=== PATIENT | female | born 1970 | race Caucasian/White ===

== ENCOUNTER 2019-11-11 19:11 | Emergency (ER) | payer MEDICARE ==
[2019-11-11 19:20] VITALS: BP 122/77
[2019-11-11] MEDS ORDERED: ACETAMINOPHEN 325 MG TABLET PO STA (19:44)
[2019-11-11] MEDS ORDERED: CYCLOBENZAPRINE 10 MG TABLET PO STA (19:44)
--- NOTE | 2019-11-11 19:47 | ED Physician Documentation ---
History of Present Illness - Stated complaint Stated Complaint: RT ARM PX/UNABLE TO LIFT - Chief complaint Chief Complaint: Ext Problem - Additonal information Additional information: This is a 49-year-old female with a history of breast cancer status post resection, radiation, and currently on terminal therapy, COPD on oxygen at home, sleep apnea on BiPAP, who presents with right shoulder pain. Patient states that she did not have any twisting or trauma or strain event of her right shoulder but 4 days ago she began having some pain in her right shoulder joint and this is progressed since then. She feels like her ability to flex the arm forward and abducted has been more and more limited. She has normal strength in her elbow and her hand. She does not feel that the shoulder is actually weak but rather that it hurts and that she is hitting a wall when she tries to move it. She denies any fever, redness or swelling of the joint. She is never had this before. She did not have any past surgeries to the shoulder, she did have radiation of her right breast in the region of her shoulder in the past. She took some Naprosyn earlier today and it helped with her pain somewhat but she continued to have limited range of motion. No other weakness, numbness no speech changes, no vision changes. Review of Systems Constitutional: denies: Fever Nose: denies: Rhinorrhea / runny nose Cardiac: denies: Chest pain / pressure Respiratory: denies: Dyspnea GI: denies: Abdominal Pain Skin: denies: Rash Musculoskeletal: reports: Joint pain PD PAST MEDICAL HISTORY - Past Medical History Past Medical History: Yes Respiratory: COPD - Present Medications Home Medications: Ambulatory Orders Medication Instructions Recorded Confirmed Cyclobenzaprine [Flexeril] 10 mg PO TID PRN #14 tablet 11/11/19 - Allergies Allergies/Adverse Reactions: Allergies Allergy/AdvReac Type Severity Reaction Status Date / Time codeine AdvReac Nausea Verified 11/11/19 19:20 - Social History Does the pt smoke?: No Smoking Status: Former smoker Does the pt drink ETOH?: No Does the pt have substance abuse?: No - POLST Patient has POLST: No PD ED PE NORMAL - Vitals Vital signs reviewed: Yes - General General: Alert and oriented X 3, No acute distress - HEENT HEENT: PERRL - Neck Neck: Supple, no meningeal sign - Cardiac Cardiac: RRR - Respiratory Respiratory: No respiratory distress, Clear bilaterally - Abdomen Abdomen: Soft, Other (rotunfd) - Derm Derm: Warm and dry - Extremities Extremities: Other (Upper extremities are symmetric in appearance. There is no erythema or warmth of either shoulder. The right shoulder there is some mild tenderness to palpation especially anteriorly in the deltoid. Sensation is intact over the entire arm including the distribution of the axillary nerve, median, radial, and ulnar nerves. She has 5 out of 5 strength with hand squeeze finger abduction wrist extension elbow flexion elbow extension. She actually has excellent strength with forward flexion but this causes pain. She is unable to abduct her arm past around 45 degrees due to pain, passive range of motion increases to about 90 degrees but she still continues to have discomfort. There is resistance past this. 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 Sensation intact light touch over the lower legs, patient endorses some chronic neuropathy over her feet.) - Psych Psych: Normal mood, Normal affect Results - Vitals Vitals: Vital Signs - 24 hr 11/11/19 19:15 Temperature 36 C L Heart Rate 97 Respiratory 24 Rate Blood Pressure 122/77 O2 Saturation 89 L Oxygen O2 Source Nasal cannula - Labs Labs: Laboratory Tests 11/11/19 11/11/19 20:14 20:14 WBC 10.5 RBC 4.48 Hgb 12.1 Hct 41.1 MCV 91.7 MCH 27.0 MCHC 29.4 L RDW 16.1 H Plt Count 218 MPV 12.2 H Neut # (Auto) 8.5 H Lymph # (Auto) 1.1 L [place] # (Auto) 0.7 Eos # (Auto) 0.2 Baso # (Auto) 0.1 Absolute Nucleated RBC 0.00 Nucleated RBC % 0.0 Sodium 137 Potassium 3.8 Chloride 87 L Carbon Dioxide 40 H* Anion Gap 10.0 BUN 20 Creatinine 1.0 Estimated GFR (MDRD) 58 L Glucose 178 H Calcium 8.9 C-Reactive Protein 3.4 H - Rads (name of study) R Shoulder Radiology: Other (Amorphous calcifications on the distal aspect of the rotator cuff can be seen in the setting of hydroxyapatite deposition disease) PD MEDICAL DECISION MAKING - ED course Complexity details: considered differential (Adhesive capsulitis, strain, rotator cuff tear, crystal arthropathy, septic arthritis, fracture,) ED course: On arrival patient is well-appearing, she has some borderline hypoxia which is baseline, she is on her home oxygen and has no respiratory complaints. On examination she has no strength or sensation deficits, but she does have some R shoulder reduced range of motion. No signs of radiculopathy - she has no neck pain, and again other than the isolated shoulder joint ROM limitation her strength and sensation are completely normal. 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 Labs show normal WBC, she does have a slightly elevated CRP at 3.4, but this is not in the range I would expect with septic arthritis, and could be slightly elevated due to her chronic disease. She does not have fever, warmth or redness in the joint, and my suspicion for septic arthritis is extremely low at this time. Given that she does have signs potential hydroxyapatite deposition disease, I spoke with the patient recommended aspiration of the joint, she would strongly like to avoid this if possible. Her range of motion actually is improved a little bit throughout her stay, and given her strong preferences I think is reasonable to try a course of anti-inflammatories as well as close outpatient follow-up. There could be a component of adhesive capsulitis as well. She understands that she may need a joint aspiration, and I reviewed the return precautions for any signs of infection in depth with the patient. She understands that with any signs of infection or worsening she will return to the emergency department. I also provided the confirmation for Dr. Puente of orthopedics with whom she can follow-up in addition to her PCP. Patient was discharged home in good condition with a prescription for Flexeril. I also discussed with her gentle range of motion exercises to help prevent adhesive capsulitis. Departure - Departure Disposition: 01 Home, Self Care Clinical Impression: Shoulder pain, right Qualifiers: Chronicity: acute Qualified Code(s): M25.511 - Pain in right shoulder Condition: Good Follow-Up: Merrill Solitario MD [Primary Care Provider] - Chris Puente MD [Provider Admit Priv/Credential] - (Call tmrw for appt) Prescriptions: Cyclobenzaprine [Flexeril] 10 mg PO TID PRN #14 tablet PRN Reason: Spasms Comments: You were seen today for shoulder pain. 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 As we discussed, common treatment for this is to aspirate out the fluid of the joint, and to try a steroid injection. Based on your wishes we will try ibuprofen 600 mg every 6 hours rather than the aspiration today, but I think is important that you follow-up closely with your primary care provider and/or sports medicine/orthopedics such as Dr. Puente, as you may need a joint aspiration and further testing. We do not see obvious signs of infection today, but if you are having redness, warmth, fever, or other concerning symptoms return to the emergency department immediately, as an infection within the joint is a serious emergency. Discharge Date/Time: 11/11/19 21:50
[2019-11-11 20:25] LABS: BASOPHILS # (AUTO) 0.1 10^3/uL (0.0-0.1); BASOPHILS % (AUTO) 0.5 %; EOSINOPHILS # (AUTO) 0.2 10^3/uL (0.0-0.7); EOSINOPHILS % (AUTO) 1.8 %; HGB - HEMOGLOBIN 12.1 g/dL (12.0-16.0); LYMPHOCYTES # (AUTO) 1.1 10^3/uL (1.5-3.5); LYMPHOCYTES % (AUTO) 10.3 %; MEAN CORPUSCULAR HGB CONC 29.4 g/dL (32.0-36.0); MEAN CORPUSCULAR VOLUME 91.7 fL (81.0-99.0); MEAN PLATELET VOLUME 12.2 fL (7.9-10.8); MONOCYTES # (AUTO) 0.7 10^3/uL (0.0-1.0); MONOCYTES % (AUTO) 6.2 %; NEUTROPHILS # (AUTO) 8.5 10^3/uL (1.5-6.6); NEUTROPHILS % (AUTO) 80.7 %; PLT - PLATELET COUNT 218 10^3/uL (130-450); RED BLOOD COUNT 4.48 10^6/uL (4.20-5.40); RED CELL DISTRIBUTION WIDTH 16.1 % (12.0-15.0); WHITE BLOOD COUNT 10.5 x10^3/uL (4.8-10.8)
--- NOTE | 2019-11-11 20:35 | XRAY Report ---
Reason: R shoulder pain, atraumatic Procedure Date: 11/11/2019 Accession Number: [id number] / [id number] Procedure: XR - Shoulder 3 View RT CPT Code: Final Report FULL RESULT: EXAM: RIGHT SHOULDER RADIOGRAPHY EXAM DATE: 11/11/2019 08:00 PM. CLINICAL HISTORY: R shoulder pain, atraumatic. COMPARISON: None. TECHNIQUE: 3 views. FINDINGS: Bones: Normal. No fracture or bone lesion. Joints: The glenohumeral and acromioclavicular joints are normal. Soft tissues: Amorphous calcifications along the distal aspect of the rotator cuff. IMPRESSION: Amorphous calcifications along the distal aspect of the rotator cuff can be seen in the setting of hydroxyapatite deposition disease. RADIA
[2019-11-11 20:42] LABS: CALCIUM 8.9 mg/dL (8.5-10.3); CRP - C-REACTIVE PROTEIN 3.4 mg/dL (0-1.0)
== END 2019-11-11 21:50 | disposition home or self-care (01) ==
LOC: ED 19:11
DX: M25.511 Pain in right shoulder (principal); Z87.891 Personal history of nicotine dependence
CPT/HCPCS: 36415; 73030; 80048; 85025; 86140; 99284; A9270

== ENCOUNTER 2020-12-26 07:00 | Outpatient (CLI) | payer MEDICARE | END 2020-12-26 23:59 | disposition home or self-care (01) | LOC: COV 07:00 | PROVIDERS: ATTEND Internal Medicine | DX: Z18.12 Retained nonmagnetic metal fragments (principal); I27.20 Pulmonary hypertension, unspecified; Z20.822 Contact with and (suspected) exposure to COVID-19 ==

== ENCOUNTER 2021-11-08 12:11 | Emergency (ER) | payer MEDICARE ==
--- NOTE | 2021-11-08 12:40 | XRAY Report ---
PROCEDURE: Chest 1 View X-Ray INDICATIONS: Chest pain TECHNIQUE: One view of the chest was acquired. COMPARISON: None FINDINGS: Surgical changes and devices: Surgical clips in the right breast.. Lungs and pleura: No pleural effusions or pneumothorax. Interstitial prominence noted in the lungs b ilaterally. Small focal opacity noted in the right lung base. Mediastinum: Mediastinal contours appear normal. Heart is enlarged Bones and chest wall: No suspicious bony lesions. Overlying soft tissues appear unremarkable. IMPRESSION: 1. Bilateral interstitial prominence which could represent pulmonary edema or atypical pneumonia. 2. Small focal opacity in the periphery of the right lung base which could represent atelectasis or p neumonia. 3. Cardiomegaly. Reviewed by: Eloisa Borrego MD, PhD on 11/08/2021 12:38 PM PST Approved by: Eloisa Borrego MD, PhD on 11/08/2021 12:38 PM PST Station ID: [id number]
[2021-11-08 12:55] LABS: BASOPHILS % (AUTO) 0.5 %; EOSINOPHILS # (AUTO) 0.1 10^3/uL (0.0-0.7); EOSINOPHILS % (AUTO) 0.9 %; HCT - HEMATOCRIT 36.4 % (37.0-47.0); HGB - HEMOGLOBIN 11.1 g/dL (12.0-16.0); LYMPHOCYTES # (AUTO) 0.7 10^3/uL (1.5-3.5); LYMPHOCYTES % (AUTO) 7.6 %; MEAN CORPUSCULAR HEMOGLOBIN 27.8 pg (27.0-31.0); MEAN CORPUSCULAR HGB CONC 30.5 g/dL (32.0-36.0); MEAN CORPUSCULAR VOLUME 91.2 fL (81.0-99.0); MEAN PLATELET VOLUME 12.3 fL (7.9-10.8); MONOCYTES # (AUTO) 0.5 10^3/uL (0.0-1.0); NEUTROPHILS # (AUTO) 7.2 10^3/uL (1.5-6.6); NEUTROPHILS % (AUTO) 84.6 %; PLT - PLATELET COUNT 193 10^3/uL (130-450); RED BLOOD COUNT 3.99 10^6/uL (4.20-5.40); RED CELL DISTRIBUTION WIDTH 19.5 % (12.0-15.0); WHITE BLOOD COUNT 8.5 x10^3/uL (4.8-10.8)
[2021-11-08 13:09] LABS: ALBUMIN 3.9 g/dL (3.2-5.5); ALBUMIN/GLOBULIN RATIO 1.1 (1.0-2.2); CREATININE 1.2 mg/dL (0.4-1.0); POTASSIUM 3.4 mmol/L (3.5-5.0); TOTAL PROTEIN 7.4 g/dL (6.7-8.2)
--- NOTE | 2021-11-08 14:12 | ED Physician Documentation ---
PD HPI CHEST PAIN - Stated complaint Stated Complaint: CHEST PX/HURTS TO BREATH - Chief complaint Chief Complaint: Resp - History obtained from History obtained from: Patient - History of Present Illness Timing - onset: How many days ago (3-4) Timing - onset during: Light activity Timing - duration: Days Timing - details: Intermittant, Waxing and waning Quality: Sharp (local right chest pain with breathing, radiates into right scapular area. Also feeling increasseed dyspnea over baseline.) Location: Right chest (under right breast and adjacent/lateral to sternum.) Radiation: Back (mid thoracic area) Improved by: Rest Worsened by: Inspiration, Movement, Palpation Associated symptoms: Cough (chronic mild cough). No: Shortness of air, Nausea, Feeling faint / dizzy, Palpitations Similar symptoms before: Has not had sx before Recently seen: Not recently seen Review of Systems Constitutional: denies: Fever, Chills, Myalgias Nose: denies: Rhinorrhea / runny nose, Congestion Throat: denies: Sore throat Cardiac: denies: Pedal edema (chronic mild), Calf pain Respiratory: reports: Dyspnea (chronic with sats 88% on 4 lpm NC typically with activity and up to 94% at rest.), Cough (chronic mild) GI: denies: Abdominal Pain, Nausea, Vomiting Skin: denies: Rash, Lesions Neurologic: denies: Focal weakness, Numbness PD PAST MEDICAL HISTORY - Past Medical History Cardiovascular: Congestive heart failure, Arrhythmia (known LBBB) Respiratory: COPD (home oxygen 4 lpm continual and BiPAP with oxygen at night. Sats 88% activity to 94% rest at home usual. ) Neuro: None Endocrine/Autoimmune: None - Present Medications Home Medications: Ambulatory Orders Medication Instructions Recorded Confirmed Cyclobenzaprine [Flexeril] 10 mg PO TID PRN #14 tablet 11/11/19 Doxycycline Hyclate 100 mg PO BID 7 Days #14 cap 11/08/21 Ipratropium/Albuterol [Duoneb] 3 ml INH Q6H 7 Days #30 units 11/08/21 predniSONE [Deltasone] 20 mg PO [id number] 10 Days #19 tab 11/08/21 - Allergies Allergies/Adverse Reactions: Allergies Allergy/AdvReac Type Severity Reaction Status Date / Time codeine AdvReac Nausea Verified 11/11/19 19:20 - Social History Does the pt smoke?: No Smoking Status: Former smoker Does the pt drink ETOH?: No Does the pt have substance abuse?: No - POLST Patient has POLST: No PD ED PE NORMAL - Vitals Vital signs reviewed: Yes - General General: Alert and oriented X 3, No acute distress, Well developed/nourished - HEENT HEENT: Pharynx benign - Neck Neck: Supple, no meningeal sign, No adenopathy - Cardiac Cardiac: RRR, No murmur - Respiratory Respiratory: No respiratory distress, Clear bilaterally, Other (tender right parathroacic muscular about T 5 area and also tender right lower parasternal. Not tender laterally. No rash seen. ) - Abdomen Abdomen: Soft, Non tender Results - Vitals Vitals: Vital Signs - 24 hr 11/08/21 11/08/21 11/08/21 15:00 15:14 15:30 Heart Rate 94 30 L 95 Respiratory 19 28 H 22 Rate Blood Pressure 135/82 H 125/97 H O2 Saturation 97 99 Oxygen O2 Source Nasal cannula Oxygen Flow Rate 4 - EKG (time done) 12;21 Rate: Rate (enter#) (92) Rhythm: NSR [place]: Normal Intervals: LBBB Ischemia: Non specific changes Compare to prior EKG: Old EKG unavailable (but patient states history of known LBBB.) - Labs Labs: Laboratory Tests 11/08/21 11/08/21 11/08/21 12:44 12:44 12:44 WBC 8.5 RBC 3.99 L Hgb 11.1 L Hct 36.4 L MCV 91.2 MCH 27.8 MCHC 30.5 L RDW 19.5 H Plt Count 193 MPV 12.3 H Neut # (Auto) 7.2 H Lymph # (Auto) 0.7 L [place] # (Auto) 0.5 Eos # (Auto) 0.1 Baso # (Auto) 0.0 Absolute Nucleated RBC 0.00 Nucleated RBC % 0.0 Sodium 136 Potassium 3.4 L Chloride 86 L Carbon Dioxide 37 H Anion Gap 13.0 BUN 16 Creatinine 1.2 H Estimated GFR (MDRD) 47 L Glucose 225 H Calcium 9.0 Total Bilirubin 1.0 AST 18 ALT 15 Alkaline Phosphatase 90 Troponin I High Sens 12.7 Total Protein 7.4 Albumin 3.9 Globulin 3.5 Albumin/Globulin Ratio 1.1 Lipase 36 - Rads (name of study) chest xray Radiology: Prelim report reviewed (small opacity in right periphery c/w atelectasis or pneumonia. ), See rad report PD MEDICAL DECISION MAKING - ED course Complexity details: considered differential (consider some COPD exac. has chronic cough. CXR showing possible infiltrates. Could be pneumonia vs mucous plugging. Pain could also be early shingles by pattern/location.), d/w patient Departure - Departure Disposition: 01 Home, Self Care Clinical Impression: Pleurodynia, COPD exacerbation, Pulmonary infiltrate in right lung on chest x- ray Condition: Stable Record reviewed to determine appropriate education?: Yes Instructions: COPD Dc, ED Chest Pain Pleurisy Follow-Up: Merrill Solitario MD [Primary Care Provider] - Prescriptions: predniSONE [Deltasone] 20 mg PO [id number] 10 Days #19 tab Doxycycline Hyclate 100 mg PO BID 7 Days #14 cap Ipratropium/Albuterol [Duoneb] 3 ml INH Q6H 7 Days #30 units Comments: Use DuoNeb nebulizer solution 3-4 times daily for the next week to help with breathing. Prednisone taper from 60-40 220 and 3-day increments as you are familiar with in the past. Your chest x-ray has a small patchy area that could be suggestive of pneumonia versus atelectasis. Add doxycycline twice daily for a week as well. Use Tylenol 4 times daily for pain as needed. Continue your other usual medications. Your EKG shows a bundle branch block. The troponin level is normal in your blood tests, so no signs of heart muscle injury or acute heart failure exacerbation. Recheck if not improving over the next several days. Transmitted your prescriptions to [facility] pharmacy in [place]. Discharge Date/Time: 11/08/21 15:40
[2021-11-08] MEDS ORDERED: predniSONE 20 MG TABLET PO STA (14:39)
[2021-11-08] MEDS ORDERED: KETOROLAC 60 MG/2 ML VIAL IM STA (14:39)
[2021-11-08] MEDS ORDERED: IPRATROPIUM/ALBUTEROL 3 ML NEB INH STA (14:40)
[2021-11-08] MEDS ORDERED: DOXYCYCLINE 100 MG TABLET PO STA (14:40)
[2021-11-08 15:30] VITALS: BP 125/97
== END 2021-11-08 15:40 | disposition home or self-care (01) ==
LOC: ED 12:11
DX: J44.9 Chronic obstructive pulmonary disease, unspecified (principal); Z99.81 Dependence on supplemental oxygen; Z87.891 Personal history of nicotine dependence; R07.81 Pleurodynia; R91.8 Other nonspecific abnormal finding of lung field
CPT/HCPCS: 36415; 71045; 80053; 83690; 84484; 85025; 93005; 94640; 96372; 99284; A9270; J7512

== ENCOUNTER 2023-03-03 12:50 | Outpatient (CLI) | payer MEDICARE | END 2023-03-03 12:51 | disposition critical access hospital (66) | LOC: EMS 12:50 | DX: R06.02 Shortness of breath (principal); R05.9 Cough, unspecified; R42 Dizziness and giddiness; Z99.81 Dependence on supplemental oxygen; J44.9 Chronic obstructive pulmonary disease, unspecified | CPT/HCPCS: A0425; A0427 ==

== ENCOUNTER 2023-03-03 13:11 | Emergency (ER) | payer MEDICARE ==
[2023-03-03] MEDS ORDERED: IPRATROPIUM/ALBUTEROL 3 ML NEB INH STA (13:26)
[2023-03-03] MEDS ORDERED: methylPREDNISolone SUCCINATE 125 MG/2 ML VIAL IVP STA (13:26)
[2023-03-03 13:53] LABS: BASOPHILS # (AUTO) 0.1 10^3/uL (0.0-0.1); BASOPHILS % (AUTO) 0.8 %; EOSINOPHILS # (AUTO) 0.2 10^3/uL (0.0-0.7); EOSINOPHILS % (AUTO) 1.6 %; HCT - HEMATOCRIT 27.7 % (37.0-47.0); HGB - HEMOGLOBIN 8.1 g/dL (12.0-16.0); LYMPHOCYTES # (AUTO) 0.6 10^3/uL (1.5-3.5); MEAN CORPUSCULAR HEMOGLOBIN 23.6 pg (27.0-31.0); MEAN CORPUSCULAR HGB CONC 29.2 g/dL (32.0-36.0); MEAN CORPUSCULAR VOLUME 80.8 fL (81.0-99.0); MEAN PLATELET VOLUME 10.8 fL (7.9-10.8); MONOCYTES # (AUTO) 0.5 10^3/uL (0.0-1.0); MONOCYTES % (AUTO) 5.6 %; NEUTROPHILS # (AUTO) 7.8 10^3/uL (1.5-6.6); NEUTROPHILS % (AUTO) 84.7 %; PLT - PLATELET COUNT 252 10^3/uL (130-450); RED BLOOD COUNT 3.43 10^6/uL (4.20-5.40); WHITE BLOOD COUNT 9.2 x10^3/uL (4.8-10.8)
--- NOTE | 2023-03-03 13:57 | ED Physician Documentation ---
History of Present Illness - Stated complaint Stated Complaint: SOA - Chief complaint Chief Complaint: Resp - History obtained from History obtained from: Patient, EMS - History of Present Illness Pain level max: 3 Pain level now: 3 - Additonal information Additional information: Patient is a 52-year-old female with a longstanding history of several medical problems. She has a history of COPD, on 3.5 to 4 L of oxygen usually at home. She has a history of anxiety, diabetes, bilateral lower extremity swelling for which she takes Lasix. She is on metoprolol and verapamil as well. She is also on a statin. Patient states she has had increased shortness of breath over the past several weeks, she has been coughing, no fevers. No chills. She also states that her legs are more swollen than usual, her doctor increased her Lasix from 80 mg p.o. twice daily to 120 mg in the morning and 80 mg at night. She states she has increased redness as well. No chest pain. No abdominal pain. No nausea or vomiting. Review of Systems Constitutional: denies: Fever, Chills Nose: reports: Rhinorrhea / runny nose, Congestion Cardiac: denies: Chest pain / pressure, Palpitations Respiratory: reports: Dyspnea, Cough, Wheezing GI: denies: Abdominal Pain, Nausea, Vomiting, Diarrhea Skin: denies: Rash Musculoskeletal: denies: Neck pain, Back pain Neurologic: denies: Headache PD PAST MEDICAL HISTORY - Past Medical History Cardiovascular: Congestive heart failure, Arrhythmia (known LBBB) Respiratory: COPD (home oxygen 4 lpm continual and BiPAP with oxygen at night. Sats 88% activity to 94% rest at home usual. ) Neuro: None Endocrine/Autoimmune: None - Present Medications Home Medications: Ambulatory Orders Medication Instructions Recorded Confirmed Cyclobenzaprine [Flexeril] 10 mg PO TID PRN #14 tablet 11/11/19 Doxycycline Hyclate 100 mg PO BID 7 Days #14 cap 11/08/21 Ipratropium/Albuterol [Duoneb] 3 ml INH Q6H 7 Days #30 units 11/08/21 predniSONE [Deltasone] 20 mg PO [id number] 10 Days #19 tab 11/08/21 predniSONE [Deltasone] 10 mg PO [id number] #42 tab 03/03/23 - Allergies Allergies/Adverse Reactions: Allergies Allergy/AdvReac Type Severity Reaction Status Date / Time codeine AdvReac Nausea Verified 11/11/19 19:20 - Social History Does the pt smoke?: No Smoking Status: Former smoker Does the pt drink ETOH?: No Does the pt have substance abuse?: No - POLST Patient has POLST: No PD ED PE NORMAL - Vitals Vital signs reviewed: Yes - General General: Alert and oriented X 3, No acute distress - HEENT HEENT: Moist mucous membranes - Neck Neck: Supple, no meningeal sign - Cardiac Cardiac: RRR, Strong equal pulses - Respiratory Respiratory: Other (Diminished breath sounds bilaterally, mild wheezing) - Abdomen Abdomen: Soft, Non tender, Non distended - Derm Derm: Warm and dry - Extremities Extremities: Other (B LE edema, erythema, no drainage. ) - Neuro Neuro: Alert and oriented X 3 - Psych Psych: Normal mood, Normal affect Results - Vitals Vitals: Vital Signs - 24 hr 03/03/23 03/03/23 03/03/23 13:13 14:11 14:15 Temperature 36.9 C Heart Rate 100 89 93 Respiratory 25 H 21 20 Rate Blood Pressure 133/56 H 136/63 H O2 Saturation 74 L 96 If not protocol 5 : Oxygen Flow, liters/minute 03/03/23 03/03/23 03/03/23 14:34 15:11 15:52 Temperature Heart Rate 95 98 95 Respiratory 22 20 17 Rate Blood Pressure 136/63 H 117/65 119/67 O2 Saturation 97 93 94 If not protocol 5 5 3 : Oxygen Flow, liters/minute 03/03/23 03/03/23 03/03/23 16:17 16:23 16:38 Temperature Heart Rate 98 94 100 Respiratory 18 18 16 Rate Blood Pressure 86/67 L 107/78 O2 Saturation 100 96 If not protocol 10 3 : Oxygen Flow, liters/minute 03/03/23 17:04 Temperature Heart Rate 98 Respiratory 18 Rate Blood Pressure 105/78 O2 Saturation 93 If not protocol 3 : Oxygen Flow, liters/minute Oxygen O2 Source Nasal cannula Oxygen Flow Rate 4 - EKG (time done) 1423 EKG releavant findings:: EKG personally interpreted by author of this note. Relevant findings are: Rate: Rate (enter#) (93) Rhythm: NSR [place]: Posterior hemiblock (LPFB) Intervals: RBBB Ischemia: Q waves (II, III, aVF) - Labs Labs: Laboratory Tests 03/03/23 03/03/23 03/03/23 13:45 13:45 13:45 WBC 9.2 RBC 3.43 L Hgb 8.1 L Hct 27.7 L MCV 80.8 L MCH 23.6 L MCHC 29.2 L RDW 18.0 H Plt Count 252 MPV 10.8 Neut # (Auto) 7.8 H Lymph # (Auto) 0.6 L [place] # (Auto) 0.5 Eos # (Auto) 0.2 Baso # (Auto) 0.1 Absolute Nucleated RBC 0.00 Nucleated RBC % 0.0 Sodium 129 L Potassium 4.6 Chloride 87 L Carbon Dioxide 33 H Anion Gap 9.0 BUN 36 H Creatinine 1.7 H Estimated GFR (MDRD) 31 L Glucose 219 H Calcium 9.4 Total Bilirubin 0.5 AST 17 ALT 12 Alkaline Phosphatase 105 B-Natriuretic Peptide 162 H Total Protein 8.2 Albumin 4.0 Globulin 4.2 Albumin/Globulin Ratio 1.0 Lipase 52 H Nasal Adenovirus (PCR) Nasal B. parapertussis DNA (PCR) Nasal Coronavir 229E PCR Nasal Coronavir HKU1 PCR Nasal Coronavir NL63 PCR Nasal Coronavir OC43 PCR Nasal Enterovir/Rhinovir PCR Nasal Influenza B PCR Nasal Influenza A PCR Nasal Parainfluen 1 PCR Nasal Parainfluen 2 PCR Nasal Parainfluen 3 PCR Nasal Parainfluen 4 PCR Nasal RSV (PCR) Nasal B.pertussis DNA PCR Nasal C.pneumoniae (PCR) [place] Human Metapneumo PCR Nasal M.pneumoniae (PCR) Nasal SARS-CoV-2 (PCR) 03/03/23 15:00 WBC RBC Hgb Hct MCV MCH MCHC RDW Plt Count MPV Neut # (Auto) Lymph # (Auto) [place] # (Auto) Eos # (Auto) Baso # (Auto) Absolute Nucleated RBC Nucleated RBC % Sodium Potassium Chloride Carbon Dioxide Anion Gap BUN Creatinine Estimated GFR (MDRD) Glucose Calcium Total Bilirubin AST ALT Alkaline Phosphatase B-Natriuretic Peptide Total Protein Albumin Globulin Albumin/Globulin Ratio Lipase Nasal Adenovirus (PCR) NOT DETECTED Nasal B. parapertussis DNA (PCR) NOT DETECTED Nasal Coronavir 229E PCR NOT DETECTED Nasal Coronavir HKU1 PCR NOT DETECTED Nasal Coronavir NL63 PCR NOT DETECTED Nasal Coronavir OC43 PCR NOT DETECTED Nasal Enterovir/Rhinovir PCR DETECTED A Nasal Influenza B PCR NOT DETECTED Nasal Influenza A PCR NOT DETECTED Nasal Parainfluen 1 PCR NOT DETECTED Nasal Parainfluen 2 PCR NOT DETECTED Nasal Parainfluen 3 PCR NOT DETECTED Nasal Parainfluen 4 PCR NOT DETECTED Nasal RSV (PCR) NOT DETECTED Nasal B.pertussis DNA PCR NOT DETECTED Nasal C.pneumoniae (PCR) NOT DETECTED [place] Human Metapneumo PCR NOT DETECTED Nasal M.pneumoniae (PCR) NOT DETECTED Nasal SARS-CoV-2 (PCR) NOT DETECTED - Rads (name of study) cxr Relevant Findings:: Final report received, See rad report PD Medical Decision Making - ED course Complexity details: reviewed results, re-evaluated patient, considered differ ential, d/w patient ED course: 52-year-old female with a history of COPD presents to the emergency department with increased dyspnea over the past several weeks. No acute findings on chest x-ray. Positive for rhinovirus. She was given DuoNeb, albuterol and Solu- Medrol. Her oxygen level is at her baseline. She does not have any further increased work of breathing. She was given a small amount of IV fluid to as she does appear to have been over diuresed from her increased Lasix recently. Patient is very well-appearing, nontoxic. Speaking in full sentences. She states that she feels like she is at her normal baseline. Will prescribe prednisone for home and continue her current medications. She will follow-up with her doctor for further care. Patient counseled regarding signs and symptoms for which I believe and urgent re-evaluation would be necessary. Patient with good understanding of and agreement to plan and is comfortable going home at this time This document was made in part using voice recognition software. While efforts are made to proofread this document, sound alike and grammatical errors may occur. CXR Moderate cardiomegaly. There is mild interstitial prominence suggesting mild CHF. Departure - Departure Disposition: Home, Self Care Clinical Impression: COPD with exacerbation, Chronic anemia Condition: Good Instructions: ED Anemia Type Not Specified, ED COPD Flare Follow-Up: Merrill Solitario MD [Primary Care Provider] - Within 3 Days Prescriptions: predniSONE [Deltasone] 10 mg PO [id number] #42 tab Comments: Please follow-up with your doctor for further care. Your prescriptions were sent to [facility] in [place]. Please continue your nebulizers at home. Your hemoglobin is down to 8.1, this does not yet meet transfusion level, but should be rechecked with your doctor. They may wish to order a blood transfusion through the [facility] clinic if your hemoglobin continues to drop. Discharge Date/Time: 03/03/23 17:05
[2023-03-03 14:06] LABS: BILIRUBIN,TOTAL 0.5 mg/dL (0.2-1.0); CALCIUM 9.4 mg/dL (8.5-10.3); CREATININE 1.7 mg/dL (0.4-1.0); POTASSIUM 4.6 mmol/L (3.5-5.0); TOTAL PROTEIN 8.2 g/dL (6.7-8.2)
--- NOTE | 2023-03-03 14:14 | XRAY Report ---
PROCEDURE: Chest 1 View X-Ray INDICATIONS: cough TECHNIQUE: One view of the chest was acquired. COMPARISON: Chest x-ray, 11/08/2021. FINDINGS: Surgical changes and devices: None. Lungs and pleura: Mild interstitial prominence. No pleural effusions or pneumothorax. Lungs are tristan ar. Mediastinum: Mediastinal contours appear normal. Heart size is moderately increased. Bones and chest wall: No suspicious bony lesions. Overlying soft tissues appear unremarkable. IMPRESSION: Moderate cardiomegaly. There is mild interstitial prominence suggesting mild CHF. Reviewed by: Nat Reddy MD on 03/03/2023 2:12 PM PDT Approved by: Nat Reddy MD on 03/03/2023 2:12 PM PDT Station ID: [id number]
[2023-03-03] MEDS ORDERED: ACETAMINOPHEN 325 MG TABLET PO STA (15:51)
[2023-03-03 15:57] LABS: B. PARAPERTUSSIS- RESP PCR PAN NOT DETECTED; B. PERTUSSIS- RESP PCR PANEL NOT DETECTED; C. PNEUMONIAE- RESP PCR PANEL NOT DETECTED; CORONAVIRUS 229E-RESP PCR NOT DETECTED; CORONAVIRUS HKU1-RESP PCR NOT DETECTED; CORONAVIRUS NL63-RESP PCR NOT DETECTED; CORONAVIRUS OC43-RESP PCR NOT DETECTED; HUMAN METAPNEUMOVIRUS NOT DETECTED; INFLUENZA A- RESP PCR PANEL NOT DETECTED; INFLUENZA B - RESP PCR PANEL NOT DETECTED; M. PNEUMONIAE- RESP PCR PANEL NOT DETECTED; PARAINFLUENZA VIRUS 1 NOT DETECTED; PARAINFLUENZA VIRUS 2 NOT DETECTED; PARAINFLUENZA VIRUS 3 NOT DETECTED; PARAINFLUENZA VIRUS 4 NOT DETECTED; RHINOVIRUS/ENTEROVIRUS DETECTED; RSV- RESP PCR PANEL NOT DETECTED; SARS-CoV-2 -RESP PCR PANEL NOT DETECTED
[2023-03-03] MEDS ORDERED: ALBUTEROL NEB 2.5 MG/3 ML INH STA (16:02)
[2023-03-03] MEDS ORDERED: SODIUM CHLORIDE 0.9% 500 ML IV STA (16:03)
[2023-03-03 17:06] VITALS: BP 105/78
== END 2023-03-03 17:05 | disposition home or self-care (01) ==
LOC: EDUNIT# → ED 13:11
DX: J44.1 Chronic obstructive pulmonary disease with (acute) exacerbation (principal); D64.9 Anemia, unspecified; I50.9 Heart failure, unspecified; E11.9 Type 2 diabetes mellitus without complications; Z20.822 Contact with and (suspected) exposure to COVID-19; Z87.891 Personal history of nicotine dependence; Z79.899 Other long term (current) drug therapy; Z99.81 Dependence on supplemental oxygen
CPT/HCPCS: 36415; 71045; 80053; 83690; 83880; 85025; 87633; 93005; 94640; 94664; 96374; 99284; A9270

== ENCOUNTER 2023-04-01 07:33 | Outpatient (CLI) | payer MEDICARE | END 2023-04-01 23:59 | disposition critical access hospital (66) | LOC: EMS 07:33 | DX: I95.9 Hypotension, unspecified (principal); R06.02 Shortness of breath | CPT/HCPCS: A0425; A0427 ==